=== PATIENT | male | born 1985 | race American Indian/Alaskan Native ===

== ENCOUNTER 2020-08-09 09:17 | Emergency (ER) | payer SELFPAY ==
--- NOTE | 2020-08-09 11:05 | Emergency Department Report ---
Minor Respiratory - HPI Chief Complaint: Fever Stated Complaint: SOB/FEVER/DIARRHEA/ALLERGIC REACTION Time Seen by Provider: 08/09/20 11:04 Minor Respiratory: Yes Rhinorrhea, Yes Sore Throat, Yes Sick Contacts, Yes Shortness of Breath, Yes Fever, No Cough Other History: The patient was evaluated in the emergency department for symptoms described in the history of present illness. He/she was evaluated in the context of the global COVID-19 pandemic, which necessitated consideration that the patient might be at risk for infection with the virus that causes COVID-19. Institutional protocols and algorithms that pertain to the evaluation of patients at risk for COVID-19 are in a state of rapid change based on information released by regulatory bodies including the CDC and federal and state organizations. These policies and algorithms were followed during the patient's care in the emergency department. Please note that these policies, procedures and recommendations changed on a rapid basis. 35-year-old - [place] male presents to the emergency room stating he has had a 1 week history of fever diarrhea runny nose increased postnasal drip. 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 Patient denies awareness of any COVID-19 contact nor has he been checked. Patient denies any past medical history currently takes no meds on a daily basis and has no known drug allergies. Patient states that he has a sore throat no appetite. ED Review of Systems ROS: Stated complaint: SOB/FEVER/DIARRHEA/ALLERGIC REACTION Other details as noted in HPI ED Past Medical Hx - Past Medical History Previous Medical History?: No - Surgical History Past Surgical History?: No - Social History Smoking Status: Current Every Day Smoker Substance Use Type: Alcohol Minor Respiratory Exam - Exam General: Vital signs noted. No distress. Alert and acting appropriately. HEENT: Yes Pharyngeal Erythema, Yes Moist Mucous Membranes, No Pharyngeal Exudates, No Frontal Tenderness, No Maxillary Tenderness Ear: Neither TM Bulge, Neither TM Erythema, Neither EAC Pain, Neither EAC Discharge Neck: Yes Supple, No Adenopathy Lungs: Yes Good Air Exchange, No Wheezes, No Ronchi, No Stridor, No Cough, No L abored Respirations, No Retractions, No Use of Accessory Muscles, No Other Abnormal Lung Sounds Heart: Yes Regular, No Murmur Abdomen: Yes Normal Bowel Sounds, No Tenderness, No Peritoneal Signs Skin: No Rash, No Edema Neurologic: Alert and oriented, no deficits. Musculoskeletal: Unremarkable. ED Course Vital Signs 08/09/20 08/09/20 09:44 09:58 Temperature 98.1 F Pulse Rate 89 Respiratory 16 20 Rate Blood Pressure 140/97 [Left] Blood Pressure 140/81 [Right] O2 Sat by Pulse 100 99 Oximetry ED Medical Decision Making - Lab Data Laboratory Tests 08/09/20 Unknown Influenza A (Rapid) Negative Influenza B (Rapid) Negative Group A Strep Rapid Negative - Medical Decision Making 35-year-old -Romanian male presents to the emergency room stating he has had a 1 week history of fever diarrhea runny nose increased postnasal drip. 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 Patient denies awareness of any COVID-19 contact nor has he been checked. Patient denies any past medical history currently takes no meds on a daily basis and has no known drug allergies. Patient states that he has a sore throat no appetite. Rapid strep rapid flu has been sent out. Strep and flu are are negative. Discussed with patient about Covid testing. And supportive measures. Critical care attestation.: If time is entered above; I have spent that time in minutes in the direct care of this critically ill patient, excluding procedure time. ED Disposition Clinical Impression: Viral syndrome Disposition: DC-01 TO HOME OR SELFCARE Is pt being admited?: No Does the pt Need Aspirin: No Condition: Stable Additional Instructions: Your symptoms appear most consistent with a nonspecific viral syndrome. However, given this current pandemic, COVID-19 is in the differential of possibilities. Despite your previous negative COVID-19 test, I do recommend repeat outpatient Covid 19 testing. In the meantime, isolate/quarantine yourself and stay away from anyone who is elderly, immunocompromised or chronically ill. You can use ibuprofen every 6-8 hours and Tylenol every 4-8 hours, using the dosing on the back of the bottle, as needed for any fever or body aches. Return to the emergency department with any worsening of your sympt oms, development of chest pain or shortness of breath, or with any acute distress. Referrals: [facility] [Provider Group] - 3-5 Days Forms: Work/School Release Form(ED)
[2020-08-09 13:14] VITALS: BP 128/95
== END 2020-08-09 12:15 | disposition home or self-care (01) ==
LOC: ED 09:17
DX: B34.9 Viral infection, unspecified (principal); F17.200 Nicotine dependence, unspecified, uncomplicated
CPT/HCPCS: 87116; 87400; 87430; 99283